=== PATIENT | female | born 1930 | race Caucasian/White ===

== ENCOUNTER 2017-01-23 22:32 | Inpatient (IN) | payer MEDICARE, BC ==
[2017-01-23] MEDS ORDERED: FLUT1LOT EX (22:50)
[2017-01-23] MEDS ORDERED: TRAZ50TA4 PO (22:50)
[2017-01-23] MEDS ORDERED: BENZ200C44 PO (22:50)
[2017-01-23] MEDS ORDERED: ARMO1TAB PO (22:50)
[2017-01-23] MEDS ORDERED: LEVO750T33 PO (22:50)
[2017-01-24] MEDS ORDERED: ONDANSETRON 4MG/2ML VIAL (J2405) IV ONE
[2017-01-24] MEDS ORDERED: FLUT1SPR2 (00:36)
[2017-01-24] MEDS ORDERED: GUAI5ELAC PO (00:36)
[2017-01-24 01:53] LABS: INR 1.08
[2017-01-24 02:04] LABS: ANION GAP 7 MEQ/L (8-16); BLOOD UREA NITROGEN 15 MG/DL (7-18); CALCIUM LEVEL 8.9 MG/DL (8.8-10.2); CARBON DIOXIDE LEVEL 26 MEQ/L (21-32); CHLORIDE LEVEL 100 MEQ/L (98-107); CREATININE FOR GFR 0.86 MG/DL (0.55-1.02); GLOMERULAR FILTRATION RATE > 60.0 (>32); GLUCOSE, FASTING 117 MG/DL (83-110); POTASSIUM SERUM 3.9 MEQ/L (3.5-5.1); SODIUM LEVEL 133 MEQ/L (136-145)
[2017-01-24 02:15] LABS: BASO % 0.2 % (0.0-1.0); EOS % 0.4 % (0.0-3.0); LARGE UNSTAINED CELL # 0.1 K/mm3 (0.0-0.4); LARGE UNSTAINED CELL % 1.2 % (0.0-4.0); LYMPH # 1.1 K/mm3 (1.5-4.5); LYMPH % 11.4 % (24.0-44.0); MEAN CORPUSCULAR HEMOGLOBIN 30.5 pg (27.0-33.0); MEAN CORPUSCULAR HGB CONC 33.4 g/dl (32.0-36.5); MEAN CORPUSCULAR VOLUME 91.4 fl (80.0-96.0); MONO # 0.4 K/mm3 (0.0-0.8); MONO % 4.5 % (0.0-5.0); NEUTROPHILS # 7.4 K/mm3 (1.8-7.7); NEUTROPHILS % 82.3 % (36.0-66.0); PLATELET COUNT, AUTOMATED 272 k/mm3 (150-450); RED CELL DISTRIBUTION WIDTH 12.7 % (11.5-14.5); WHITE BLOOD COUNT 8.9 K/mm3 (4.0-10.0)
[2017-01-24] MEDS: NS 1,000 ML IV SCH ×2 (05:00→17:20)
[2017-01-24] MEDS ORDERED: HEPARIN SOD (PORCINE) 5000 UNITS/ML VIAL SC SCH (06:00)
[2017-01-24 06:09] LABS: INR 1.11
[2017-01-24] MEDS: MORPHINE 2 MG/ML 1ML SYRINGE IV PRN ×5 (06:13→23:13)
--- NOTE | 2017-01-24 07:06 | HPEPDOC ---
General Date of Admission Jan 24, 2017 at 04:41 Other Providers PCP in [place] Attending Physician: ARLEN URENA DO Chief Complaint The patient is a 86-year-old female admitted with a reason for visit of Fx Of Femoral Neck, Right, Closed. Source: Patient Exam Limitations: No limitations Timing/Duration: 4-6 hours Severity: Severe Associated Symptoms: Mechanical fall History of Present Illness It is 6-year-old female with no past medical surgical history presented to the emergency room after having a mechanical fall at cousin's place. She lives in [place] and was visiting her cousin today and her foot and it is stuck in the rug and lost her balance and fell down On her right side, unable to get up. She'll go to the emergency room where she was found to have right. femoral Neck fracture Home Medications Scheduled Fluticasone Propionate (Fluticasone Propionate 0.05%) 120 [place]/16 Gm Naspr, 2 SPRAY NA DAILY, (Reported) PER NOSTRIL Levofloxacin Hemihydrate (Levofloxacin) 750 Mg Tab, 750 MG PO DAILY, (Reported) Thyroid ([place] Thyroid) 30 Mg Tab, 30 MG PO DAILY, (Reported) Trazodone HCl (Trazodone HCl) 50 Mg Tab, 50 MG PO QHS, (Reported) Scheduled PRN Benzonatate (Benzonatate) 200 Mg Cap, 200 MG PO Q8H PRN for COUGH, (Reported) Guaifenesin/Codeine (Guaifenesin/Codeine 100-10 mg/5Ml) 5 Ml Syrp, 5 ML PO BID PRN for COUGH, (Reported) COULD TAKE UP TO 10 ML BID Allergies Coded Allergies: No Known Allergies (Unverified , 01/23/17) Past Medical History Medical History None Surgical History None Social History * Smoker: Denies Alcohol: Denies Drugs: denies Recent Travel/Sick Contacts: Reports: Recent travel Psychosocial History: No pertinent psych hx Review of Symptoms Constitutional: Denies: Chills, Fever, Night Sweats Eyes: Denies: Pain, Vision change ENT: Denies: Head Aches, Ear Pain, Dysphagia Skin: Denies: Rash, Lesions, Breakdown Pulmonary: Denies: Dyspnea, Cough Cardiovascular: Denies: Chest Pain, Palpitations, Orthopnea, Paroxysmal Noc. Dyspnea, Lt Headedness Gastrointestinal: Denies: Nausea, Vomiting, Abdominal Pain, Diarrhea Genitourinary: Denies: Dysuria, Frequency, Incontinence, Retention Hematologic: Denies: Bruising, Bleeding Excessively Musculoskeletal: Reports: Joint Pain, Muscle Pain, Denies: Neck Pain, Back Pain, Spasms Neurological: Denies: Weakness, Numbness, Change in speech, Confusion Psych: Reports: Mood Normal, Denies: Depression, Memory Issues Physical Examination General Exam: Positive: Alert, No Acute Distress Eye Exam: Positive: PERRLA, Conjunctiva & lids normal, EOMI, Negative: Sclera icteric ENT Exam: Positive: Atraumatic, Mucous membr. moist/pink, Pharynx Normal Neck Exam: Positive: Supple, Negative: JVD, thyromegaly Chest Exam: Positive: Clear to auscultation, Normal air movement Heart Exam: Positive: Rate Normal, Regular Rhythm, Normal S1, Normal S2, Negative: Murmurs, Rubs Telemetry: Positive: No significant arrhythmia Abdomen Exam: Positive: Normal bowel sounds, Soft, Negative: Tenderness, Hepatospenomegaly Extremity Exam: Positive: Normal pulses, Other (tenderness in the right hip . No skin color change, no contusion or laceration), Negative: Clubbing, Cyanosis, Edema Skin Exam: Positive: Nl turgor and temperature, Negative: Breakdown, Lesion Neuro Exam: Positive: Normal Gait, Normal Speech, Cranial Nerves 3-12 NL, Reflexes 2+ Psych Exam: Positive: Mental status NL, Mood NL, Oriented x 3 Vital Signs Vital Signs Date Time Temp Pulse Resp B/P (MAP) Pulse Ox O2 Delivery O2 Flow Rate FiO2 01/24/17 06:50 16 96 Room Air 01/24/17 05:05 99.3 83 151/65 Laboratory Data Labs 24H Laboratory Tests 2 01/24/17 01:18: White Blood Count 8.9, Red Blood Count 3.53L, Hemoglobin 10.8L, Hematocrit 32.3L , Mean Corpuscular Volume 91.4, Mean Corpuscular Hemoglobin 30.5, Mean Corpuscular Hemoglobin Concent 33.4, Red Cell Distribution Width 12.7, Platelet Count 272, Neutrophils (%) (Auto) 82.3H, Lymphocytes (%) (Auto) 11.4L, Monocytes (%) (Auto) 4.5, Eosinophils (%) (Auto) 0.4, Basophils (%) (Auto) 0.2, Neutrophils # (Auto) 7.4, Lymphocytes # (Auto) 1.1L, Monocytes # (Auto) 0.4, Eosinophils # (Auto) 0.0, Basophils # (Auto) 0.0, Large Unclassified Cells % 1.2 , Large Unclassified Cells # 0.1, Prothrombin Time 14.1, Prothromb Time International Ratio 1.08, Activated Partial Thromboplast Time 33.7, Anion Gap 7L , Glomerular Filtration Rate > 60.0, Blood Urea Nitrogen 15, Creatinine 0.86, Sodium Level 133L, Potassium Level 3.9, Chloride Level 100, Carbon Dioxide Level 26, Calcium Level 8.9 01/24/17 05:47: Prothrombin Time 14.4, Prothromb Time International Ratio 1.11 CBC/BMP Laboratory Tests 01/24/17 01:18 Red Blood Count 3.53 L, Mean Corpuscular Volume 91.4, Mean Corpuscular Hemoglobin 30.5, Mean Corpuscular Hemoglobin Concent 33.4, Red Cell Distribution Width 12.7, Neutrophils (%) (Auto) 82.3 H, Lymphocytes (%) (Auto) 11.4 L, Monocytes (%) (Auto) 4.5, Eosinophils (%) (Auto) 0.4, Basophils (%) ( Auto) 0.2, Neutrophils # (Auto) 7.4, Lymphocytes # (Auto) 1.1 L, Monocytes # ( Auto) 0.4, Eosinophils # (Auto) 0.0, Basophils # (Auto) 0.0, Calcium Level 8.9 Assessment/Plan 86-year-old female with no past medical, surgical history, presented to the emergency room with a right hip pain, which was due to right femoral neck fracture Problems (1) Fracture of femoral neck, right, closed Status: Acute Problem Text: Orthopedic Dr. Savage was consulted. Patient was made nothing by mouth patient had no past medical or surgical history. No clonus and disorder, no COPD, no CHF, no CAD percent. Very low risk for this moderate to risk surgical procedure. Patient will be scheduled for ORIF today Plan / VTE VTE Prophylaxis Ordered?: Yes Plan / Urinary Catheter Urinary Catheter: Place Stewart Plan IVF: Initiate Diet: Make NPO Anticipated Discharge: Home RYAN CARDOZO MD Jan 24, 2017 07:06
[2017-01-24] MEDS ORDERED: MORPHINE 2 MG/ML 1ML SYRINGE IV ONE ×2 (08:15)
[2017-01-24] MEDS ORDERED: PERCOCET 5MG/325MG TAB As Ordered ONE (08:20)
[2017-01-24] MEDS: PERCOCET 5MG/325MG TAB PO PRN ×3 (08:23→21:26)
--- NOTE | 2017-01-24 08:25 | ECGEPIP ---
Stationary ECG Study [facility] - ED Test Date: 2017-01-23 Pat Name: IVANIA MCDUFFIE Department: Room: [place] [address] Gender: F Cycle Repairer: mariela : 1930 Requested By: MAMADOU Law Order Number: [id number] Reading MD: Lakeisha Scherer Measurements Intervals [place] Rate: 80 P: 48 GA: 153 QRS: 59 QRSD: 78 T: 61 QT: 360 QTc: 416 Interpretive Statements SINUS RHYTHM NSTTW ABNORMALITY NO PRIOR FOR COMPARISON Electronically Signed On 01-24-2017 8:25:23 EDT by Lakeisha Scherer
--- NOTE | 2017-01-24 08:39 | REP ---
Chest x-ray: Single PA view. History: Preop. Hip fracture. Findings: The lungs are somewhat hyperinflated but free of infiltrate. There is mild fibrotic change in the left base. The heart is not enlarged. Pulmonary vasculature is not increased. There are mild degenerative changes in the thoracic spine. No other bony abnormality. Impression: Mild linear fibrosis left base. Otherwise no acute disease. Signed by Giovanni Dailey MD 01/24/2017 10:17 A
--- NOTE | 2017-01-24 08:40 | REP ---
Pelvis right hip: Three views. History: Trauma. Findings: AP view of the pelvis and AP and frog-leg views of the right hip demonstrate a femoral neck fracture on the right with some impaction. There is diffuse osteoporosis. No pelvic or left hip fracture is seen. Impression: Right femoral neck fracture. Signed by Giovanni Dailey MD 01/24/2017 10:17 A
[2017-01-24] MEDS: THYROID 30 MG TAB PO SCH (09:00)
[2017-01-24] MEDS: FLUTICASONE PROP 0.05% NASAL SPRAY 16 GM (FLONASE) SCH (09:29)
[2017-01-24] MEDS ORDERED: ceFAZolin 1GM INJ (J0690) As Ordered ONE ×2 (13:09→18:32)
[2017-01-24] MEDS ORDERED: BUPIVACAINE/EPIN 0.25% 30 ML VIAL As Ordered ONE (13:09)
[2017-01-24] MEDS ORDERED: WARFARIN SOD 2.5 MG TAB PO SCH (17:00)
--- NOTE | 2017-01-24 17:11 | CR ---
DATE OF CONSULTATION: 01/24/2017 Saw the patient this morning in the ER on 01/24/2017. CHIEF COMPLAINT: Right hip pain. HISTORY OF PRESENT ILLNESS: She stumbled on a rug. She is here from [place] visiting relatives. She had pain in the hip on the right side, trouble weightbearing. 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 ALLERGIES: No known drug allergies. MEDICAL HISTORY: Include no significant medical issues. She has hypothyroidism. MEDICATIONS AT HOME: Include fluconazole, levofloxacin, thyroid and trazodone. SOCIAL HISTORY: Does not smoke or drink or use illicit drugs. Primary language is Kenyan. REVIEW OF SYSTEMS: She is only complaining bitterly of right hip pain. She is not complaining of fever or chills, visual disturbances, headache, skin problems, lung problems, chest pain, GI problems, skin or urinary problems other than usual. Musculoskeletal issues other than the right hip pain, numbness or tingling or psychiatric disturbances. CLINICAL EXAM: Alert and cooperative. Mood and affect appropriate. She is articulate and charming. She has healthy skin in the face, upper and lower extremity. She is quite thin, but not quite cachectic. Normocephalic, atraumatic. No shortness of breath. Cardiac: Regular about 90 beats per minute. Lower extremity is not edematous. She has pain around the right hip with any movement. No edema about the knee. Soft, nontender calves. Oxygen on room air was 96%, blood pressure in the ED 151/65, afebrile. LABORATORY DATA: Hematocrit 32. Creatinine 0.86, potassium 3.9. IMAGING: She has a valgus impacted femoral neck fracture of the right hip. RECOMMENDATIONS: Consulted the patient about different treatment options. My recommendation at this stage would be 7-3 cannulated screws for fixation of the fracture. We talked about the surgery proposed, alternatives including hemiarthroplasty and risks including but not limited to failure, need for more surgery, infection, bleeding, blood loss, limp and other issues. The patient understands and agrees to proceed with surgery. Medical optimization via the hospitalist service. Coordinated care with the ER and coordinated surgical scheduling with the OR. For further details please refer to the medical record.
[2017-01-24] MEDS ORDERED: ceFAZolin 2 GM/D5W 50 ML IV BAG (J0690) As Ordered ONE (18:06)
[2017-01-24] MEDS ORDERED: KETAMINE HCL 200 MG/20 ML VIAL As Ordered ONE (19:08)
[2017-01-24] MEDS ORDERED: fentaNYL 100 MCG/2 ML INJECTION (J3010) As Ordered ONE (19:08)
[2017-01-24] MEDS ORDERED: PROPOFOL 500 MG/50 ML VIAL As Ordered ONE (19:08)
[2017-01-24] MEDS ORDERED: PHENYLephrine HCL 500 MCG/5 ML (100MCG/ML) SYRINGE (J2370) As Ordered ONE (19:08)
[2017-01-24] MEDS ORDERED: MIDAZOLAM INJ 2 MG/2 ML VIAL (J2250) As Ordered ONE (19:08)
[2017-01-24] MEDS ORDERED: PERCOCET 5MG/325MG TAB PO PRN ×2 (19:45→20:00)
[2017-01-24] MEDS ORDERED: D5W/LR 1,000 ML IV SCH (19:45)
[2017-01-24] MEDS ORDERED: ONDANSETRON 4MG/2ML VIAL (J2405) IV PRN ×2 (19:45→20:00)
[2017-01-24] MEDS ORDERED: MEPERIDINE INJ 25 MG/ML VIAL (J2175) As Ordered ONE (19:49)
[2017-01-24] MEDS ORDERED: MEPERIDINE INJ 25 MG/ML VIAL (J2175) IV PRN (20:00)
[2017-01-24] MEDS ORDERED: LR 1,000 ML IV SCH (20:00)
[2017-01-24] MEDS ORDERED: METOCLOPRAMIDE INJ 10MG/2ML VIAL (J2765) IV PRN (20:00)
[2017-01-24] MEDS ORDERED: fentaNYL 100 MCG/2 ML INJECTION (J3010) IV PRN (20:00)
--- NOTE | 2017-01-24 20:01 | REP ---
C-ARM VIEWS RIGHT HIP: Two C-Arm views of the right hip are performed. There is placement of three metallic screws in the proximal right femur. The structures are relatively well aligned. 40 seconds fluoroscopy time utilized. Signed by Rip Aragon MD 01/24/2017 08:07 P
[2017-01-24 20:30] VITALS: BP 145/70
[2017-01-24 21:00] VITALS: BP 143/64
[2017-01-24 22:00] VITALS: BP 142/64
[2017-01-24 23:00] VITALS: BP 135/60
[2017-01-24] MEDS: ceFAZolin SOD 1 GM in D5W MINI-BAG PLUS 50 ML IV SCH (23:13)
[2017-01-25] VITALS: BP 133/78
[2017-01-25] MEDS: MORPHINE 2 MG/ML 1ML SYRINGE IV PRN ×2 (00:53→11:18)
[2017-01-25 01:00] VITALS: BP 138/60
[2017-01-25] MEDS: PERCOCET 5MG/325MG TAB PO PRN ×3 (01:23→15:18)
[2017-01-25 05:00] VITALS: BP 124/59
[2017-01-25] MEDS: ceFAZolin SOD 1 GM in D5W MINI-BAG PLUS 50 ML IV SCH (05:45)
[2017-01-25 07:05] LABS: MEAN CORPUSCULAR HEMOGLOBIN 31.4 pg (27.0-33.0); MEAN CORPUSCULAR HGB CONC 33.6 g/dl (32.0-36.5); MEAN CORPUSCULAR VOLUME 93.3 fl (80.0-96.0); RED CELL DISTRIBUTION WIDTH 12.8 % (11.5-14.5); WHITE BLOOD COUNT 7.7 K/mm3 (4.0-10.0)
[2017-01-25 07:13] LABS: INR 1.2
[2017-01-25 07:20] LABS: ALBUMIN 2.6 GM/DL (3.2-5.2); ALBUMIN/GLOBULIN RATIO 0.76 (1.00-1.93); ALKALINE PHOSPHATASE 59 U/L (45-117); ALT/SGPT 17 U/L (12-78); ANION GAP 7 MEQ/L (8-16); AST/SGOT 15 U/L (15-37); BILIRUBIN,TOTAL 0.4 MG/DL (0.2-1.0); BLOOD UREA NITROGEN 9 MG/DL (7-18); CARBON DIOXIDE LEVEL 26 MEQ/L (21-32); CHLORIDE LEVEL 99 MEQ/L (98-107); CREATININE FOR GFR 0.67 MG/DL (0.55-1.02); GLOMERULAR FILTRATION RATE > 60.0 (>32); GLUCOSE, FASTING 127 MG/DL (83-110); POTASSIUM SERUM 3.8 MEQ/L (3.5-5.1); SODIUM LEVEL 132 MEQ/L (136-145)
[2017-01-25] MEDS ORDERED: MIRALAX *UNIT DOSE* 17GM PACKET PO SCH (09:00)
[2017-01-25] MEDS ORDERED: MOM 30ML SUSPENSION UDC PO SCH (09:00)
[2017-01-25] MEDS ORDERED: SENOKOT S TAB PO SCH (09:00)
--- NOTE | 2017-01-25 09:25 | REP ---
RIGHT HIP: Two views. HISTORY: Evaluate hardware placement. Comparison hip radiographs from January 23, 2017. FINDINGS: There are three metallic pins in good position across a femoral neck fracture which is held in alignment unchanged. There is slight impaction. Lateral skin raymond are noted. There is some diffuse osteopenia. Signed by Giovanni Dailey MD 01/25/2017 09:37 A
[2017-01-25] MEDS: THYROID 30 MG TAB PO SCH (10:00)
[2017-01-25] MEDS: FLUTICASONE PROP 0.05% NASAL SPRAY 16 GM (FLONASE) SCH (10:00)
[2017-01-25 14:00] VITALS: BP 132/98
[2017-01-25] MEDS ORDERED: WARFARIN SOD 5 MG TAB PO ONE (17:00)
--- NOTE | 2017-01-25 23:07 | DSES ---
DATE OF ADMISSION: 01/24/2017 DATE OF DISCHARGE: REASON FOR ADMISSION: Fracture of the right femoral neck. PRIMARY CARE PROVIDER: Sukumar Kumar. FINAL DIAGNOSIS: Impacted, femoral neck fracture of the right hip status post fixation of the fracture. HISTORY OF PRESENT ILLNESS: The patient an 86-year-old from on out of town. Is here visiting her cousin. Had a mechanical fall, resulting in the right femoral neck fracture. In the emergency room she was evaluated by Dr. Savage, and she was cleared for surgery. HOSPITAL COURSE: The patient tolerated the procedure well. Preoperatively she had that mild anemia, hemoglobin 10.8, postoperative is 9.3. The patient was also hyponatremic upon arrival at 133. Postoperatively was 132. Otherwise patient tolerated procedure well. Was working with physical therapy, ambulating, and she was accepted at physical medicine and rehabilitation ([facility]) and was discharged. DISCHARGE INSTRUCTIONS: The patient is to followup with orthopedics in 1-2 weeks upon discharge, to followup with primary care provider in 1 week. Diet regular. Activities as tolerated. DISCHARGE MEDICATIONS: Include: - benzonatate 200 mg every 8 hours as needed for cough - Fluticasone 120 spray, two sprays per nostril daily - thyroid 30 mg by mouth daily Patient was on levofloxacin when she came in with a recent diagnosis of sinusitis. That was discontinued. Trazodone was also discontinued. The patient is to continue Coumadin. She was ordered one dose of Coumadin 5 mg today. Recommend repeat complete blood count (CBC) and INR in the morning, to continue to monitor the patient's hemoglobin and INR. Also recommend ordering basic metabolic panel (BMP) to monitor patient's hyponatremia. The patient condition is stable.
--- NOTE | 2017-01-26 08:53 | RO ---
DATE OF PROCEDURE: 01/25/2017 PREOPERATIVE DIAGNOSIS: Right hip valgus impacted femoral neck fracture. POSTOPERATIVE DIAGNOSIS: Right hip valgus impacted femoral neck fracture. OPERATIVE PROCEDURE: Percutaneous fixation of right hip impacted femoral neck fracture using 7.3 cannulated screws. SURGEON: Nadir Savage MD [employer] OFFICER: ANESTHESIA: rosa Johnson. ESTIMATED BLOOD LOSS: Less than 30 mL. REPLACED: Crystalloid. COMPLICATIONS: None. COMPONENTS USED: Include 7.3 cannulated screws, 85 mm length x 2, 90 mm length x 1 short threads. INDICATIONS: Impacted femoral neck fracture as above. Consent reviewed in detail with the patient who agrees to proceed with the surgery. We also talked about alternatives such as hemiarthroplasty. DESCRIPTION OF PROCEDURE: Identified in the holding area, site, side verified, brought to the operating room. Once spinal anesthesia was administered, I positioned the patient on the fracture table for exposure of the right hip. Once she was sterilely prepped and draped, a time-out was accomplished. We proceeded with the operation. I palpated the lateral aspect of femur. We made a 1.5 cm incision based on fluoroscopic visualization, developed down through subcuticular tissues. I made a rent in the lateral hip fascia to allow the guide to be applied to the lateral aspect of the femur. I applied a guidewire, which was drilled in the femoral head. I placed the guidewire and verified and adjusted it fluoroscopically in the AP and lateral planes. Remaining two guidewires were then placed into the femoral head, into the subchondral bone. Next, we measured off the wires. I overdrilled the wires at the lateral cortex and then we placed the appropriate 7.3 cannulated screws over the wires. Final fluoroscopic images taken in the AP and lateral planes reflect good screw placement and a well aligned injury. Next wires removed. Irrigation was accomplished. Lateral fascia reapproximated with interrupted stitch. Dermis approximated with an interrupted stitch. Linda used on skin dressing applied. I helped reassemble the fracture bed and moved the patient to the hospital bed where she was moved to the recovery room in good condition. She tolerated the procedure well. For further details please refer to medical record.
== END 2017-01-25 16:24 | DRG 481 ==
LOC: EDBD 22:32 → M ED 23:51 → M ED INP 01-24 04:41 → M MS5PR 01-24 08:30
PROVIDERS: ADMIT Internal Medicine; ATTEND Internal Medicine
PROC: 0QS604Z Reposition Right Upper Femur with Internal Fixation Device, Open Approach (ICD-10-PCS; principal; 2017-01-25)
DX: S72.001A Fracture of unspecified part of neck of right femur, initial encounter for closed fracture (principal); E87.1 Hypo-osmolality and hyponatremia; D62 Acute posthemorrhagic anemia; Z79.899 Other long term (current) drug therapy; W18.30XA Fall on same level, unspecified, initial encounter; Y92.009 Unspecified place in unspecified non-institutional (private) residence as the place of occurrence of the external cause

== ENCOUNTER 2017-01-25 15:08 | Inpatient (IN) | payer MEDICARE, BC ==
[~2017-01-25] VITALS: Ht 156.2 cm; Wt 48.4 kg
[~2017-01-25 15:08] MED LIST: ARMO1TAB PO; BENZ200C44 PO; FLUT1LOT EX; FLUT1SPR2; GUAI5ELAC PO; LEVO750T33 PO; TRAZ50TA4 PO
[2017-01-25] MEDS ORDERED: MOM 30ML SUSPENSION UDC PO PRN (15:45)
[2017-01-25] MEDS ORDERED: FLEET ENEMA PR PRN (15:45)
[2017-01-25] MEDS ORDERED: MIRALAX *UNIT DOSE* 17GM PACKET PO PRN (15:45)
[2017-01-25] MEDS ORDERED: ONDANSETRON 4 MG TAB (S0181) PO PRN (15:45)
[2017-01-25] MEDS ORDERED: oxyCODONE 5MG TAB PO PRN (16:30)
[2017-01-25 17:00] VITALS: BP 112/53
[2017-01-25] MEDS ORDERED: WARFARIN SOD 5 MG TAB PO SCH (17:00)
--- NOTE | 2017-01-25 17:45 | CR.PDOC ---
[facility] Consultation Consultation DATE OF CONSULTATION: REFERRING PROVIDER: Michael Tang M.D. ATTENDING PHYSICIAN: Dr. Macias REASON FOR CONSULTATION/CHIEF COMPLAINT: . Medical Management HISTORY OF PRESENT ILLNESS: . 86-year-old female with past medical history significant only for hypothyroidism and a recent fracture of the right femoral neck status post open reduction internal fixation by orthopedic surgery. The patient has been transferred to acute rehabilitation for further strengthening and conditioning. At this time, the patient denies any acute complaints of fevers, chills, shortness of breath, chest pain, palpitation, abdominal pain or any nausea/ vomiting/diarrhea. The hospitalist team has been consulted for assistance with management of the patient's underlying medical comorbidity. ALLERGIES: Please see below. HOME MEDICATIONS: Please see below. PAST MEDICAL HISTORY: As noted above PAST SURGICAL HISTORY: None FAMILY HISTORY: Not pertinent SOCIAL HISTORY: Denies any tobacco, alcohol or illicit drug use REVIEW OF SYSTEMS: 10 point review of systems negative unless otherwise specified in HPI. PHYSICAL EXAMINATION: VITAL SIGNS: Please see below. GENERAL APPEARANCE: . Awake, alert, in no acute distress HEENT: . No JVD RESPIRATORY: . Clear to auscultation bilaterally CARDIOVASCULAR: . Normal S1, normal S2 ABDOMEN: . Soft, nontender, nondistended EXTREMITIES: . Surgical dressing noted on right hip area, range of motion on flexion and extension of the hip limited secondary to recent surgery. LABORATORY DATA: Please see below. ASSESSMENT/PLAN: Right hip femoral neck status post ORIF Management of pain and DVT prophylaxis as per primary team Mild hyponatremia Serum sodium noted to be 132 We will continue to monitor at this time History of hypothyroidism Continue supplementation GERD Continue PPI The patient will be followed in consult by Dr. Naranjo of the hospitalist team over the weekend. Vital Signs/I&O Vital Signs Date Time Temp Pulse Resp B/P (MAP) Pulse Ox O2 Delivery O2 Flow Rate FiO2 01/25/17 17:00 99.2 82 18 112/53 (72) 95 Room Air Allergies Coded Allergies: No Known Allergies (Unverified , 01/23/17) Home Medications Scheduled Fluticasone Propionate (Fluticasone Propionate 0.05%) 120 [place]/16 Gm Naspr, 2 SPRAY NA DAILY, (Reported) PER NOSTRIL Thyroid ([place] Thyroid) 30 Mg Tab, 30 MG PO DAILY, (Reported) Scheduled PRN Benzonatate (Benzonatate) 200 Mg Cap, 200 MG PO Q8H PRN for COUGH, (Reported) Guaifenesin/Codeine (Guaifenesin/Codeine 100-10 mg/5Ml) 5 Ml Syrp, 5 ML PO BID PRN for COUGH, (Reported) COULD TAKE UP TO 10 ML BID MICHAEL TANG MD Jan 25, 2017 17:45
--- NOTE | 2017-01-25 19:46 | PMRHPE ---
DATE OF ADMISSION: 01/25/2017 REASON FOR ADMISSION: Rehabilitation of right hip fracture status-post open reduction internal fixation on 01/24/2017. HISTORY OF THE PRESENT ILLNESS: Patient is an 86-year-old white female who while visiting family caught her foot in a rug, lost her balance and fell down on her right side. She was unable to move her right hip. She was brought to the emergency room at [facility] and was discovered to have a right femoral neck fracture with some impaction on 01/24/2017. She went to the operating room and had an open reduction internal fixation of the right hip fracture and is touch down weightbearing, egg shell, level pressure on the right lower extremity. Her course her been complicated by pain as well as some postoperative anemia related to the bleed with the hip fracture and subsequent clean out and drainage during the reduction and internal fixation procedure. PAST MEDICAL HISTORY: Includes allergies, hypothyroidism, also some insomnia. HOME MEDICATIONS: Fluconazole propionate, armor thyroid, trazodone. ALLERGIES: NO KNOWN DRUG ALLERGIES. MEDICATIONS ON ADMISSION: - Protonix 40 mg daily for gastrointestinal (GI) protection - multivitamin daily to assist healing - Senokot for a bowel program - Coumadin for deep venous thrombosis (DVT) prophylaxis - MiraLAX for a bowel program - Fleets enema for constipation - Milk of magnesia for constipation - Zofran for nausea and vomiting - Tylenol for pain or fever - oxycodone 5 mg for moderate pain and 10 mg for severe pain every 6 hours SOCIAL HISTORY: Patient who is retired and a nonsmoker. Does not drink alcohol. Does not use illicit drugs. Was living independently with community skills and driving herself. She lives in [place] and was visiting family members in this region. FAMILY HISTORY: Noncontributory. REVIEW OF SYSTEMS: Negative on a 12 point history except for the joint pain and hip pain and spasms on the right. PHYSICAL EXAMINATION: GENERAL: Patient is a well nourished, well developed, elderly white female who looks slightly less than stated age of 86. VITAL SIGNS: Temperature 98.3, blood pressure 124/59, pulse 75, respirations 14, pulse oximetry 100% on 2 liters oxygen by nasal cannula. HEENT: Normocephalic/atraumatic with graying and slightly thinning hair. She uses glasses for visual correction. Extraocular motions are intact. Pupils are equal, round, reactive to light and accommodation. Pupils were 2-3 mm in diameter in a moderately dark room. Hearing is grossly intact. NECK: Supple. Carotid parathyroid is normal in size and no goiter or nodules were palpable. LUNGS: Clear in all sesay to auscultation. CORONARY: Shows a regular rate and rhythm with normal S1, S2 and 2/4 radial pulses. ABDOMEN: Showed mild distention with a bit of increased tympany on percussion and just very mild to no diffuse tenderness with normal bowel sounds in all quadrants. EXTREMITIES: Right hip is tender with some guarding and has the surgical incision under dressing. Bilateral upper extremities and left lower extremity with functional range of motion and strength. Right lower extremity has guarding, otherwise hip with some tenderness with other movements of the right lower extremity with any movement of ankle movement. NEUROLOGICALLY: The patient is alert and oriented times 4. Speech is clear, coherent and appropriate. Affect is pleasant and cooperative. She is a bit anxious and in moderate musculoskeletal distress. Light touch is intact in bilateral upper and lower extremity as is vibration. Deep tendon reflexes show 2/4 biceps, triceps, 2/4 brachial radialis and 1/4 knee jerks and trace ankle jerks. LABORATORY DATA: CBC shows normal white count of 7.7 but hemoglobin and hematocrit preoperatively at 10.8 and 32.3% have declined to 9.3 and 27.7% for a moderate anemia with sodium reduced from 133 to 132 in the preoperative and postoperative time frame with the other electrolytes normal and renal function normal but fasting glucose is elevated at 127 this morning and albumin has declined to 2.6 for hypoalbuminemia. Coagulation is still under work this morning. INR is 1.20 and patient is to receive 5 units of Coumadin tonight. IMAGING: On postoperative hip x-ray, there are 3 metallic pins in good position across the femoral neck fracture and alignment is unchanged from preoperative pictures. Lateral skin raymond are noted. There is some diffuse osteopenia. ASSESSMENT/PLAN: 1. Rehabilitation of right hip fracture. Patient restricted during the next 6 weeks to just toe touch or less than 15 pounds of weightbearing through the right lower extremity. She needs to learn how to compensate to using a walker or crutches to get around without bearing weight in on the right lower extremity and learn her activities of daily living (ADL's) using these techniques. Therefore, we will proceed with a program of physical and occupational therapy to learn adapative mobility and ADL's, initially with walker and if patient is able to advance to crutches will do so. I anticipate through cognition and prior high level of function she should do well but right now she is having lots of problems with pain management and the bowels have slowed down somewhat and she has not had a bowel movement in over 2 days and this will need to be watched. She needs DVT prophylaxis and we will continue with sequential compression hose and ANTHONY hose as well as the Coumadin for that. 2. Hypothyroidism. Will continue using her medication armor thyroid 30 mg daily. 3. Fever. We will continue to watch for this and adjust accordingly. 4 History of some insomnia. We will consider starting trazodone if needed to reinforce sleep. Patient previously using 50 mg at night. 5. Postoperative anemia. Patient with moderate anemia. We will continue to watch this. Medicine has been consulted to see patient and participate in care. POST ADMISSION PHYSICIAN EVALUATION: Patient is consistent with the preadmission screening and is likely to be able to participate and benefit in therapy. She is early on the process and someone more inhibited by initial postoperative pain but we will work to adjust her medication, possibly using some tramadol as well to facilitate less opioids and get more consistent algesia. I do think that she will benefit from this therapy. I anticipate her being discharged to return to stay with her family locally to complete the approximate 6 weeks that it will take for her to regain a solid fusion of the hip fracture such that the consideration for a return to driving and flying home will be practical. Overall I do feel her prognosis is good and I estimate her length of stay in the rehabilitation unit to be approximately 7-10 days though she may do better than that. Time spent on chart review, history and physical and documentation is greater than 70 minutes.
[2017-01-25 20:00] VITALS: BP 117/56
[2017-01-25] MEDS: SENNA 8.6 MG TAB (SENOKOT) PO SCH (20:46)
[2017-01-25] MEDS: ACETAMINOPHEN TAB 650MG DOSE (2X325MG) PO PRN (20:48)
[2017-01-26 06:00] VITALS: BP 140/63
[2017-01-26] MEDS: ACETAMINOPHEN TAB 650MG DOSE (2X325MG) PO PRN ×2 (06:20→12:43)
[2017-01-26] MEDS: THYROID 30 MG TAB PO SCH (06:20)
[2017-01-26 07:02] LABS: BASO % 0.1 % (0.0-1.0); EOS # 0.1 K/mm3 (0.0-0.50); EOS % 1.3 % (0.0-3.0); LARGE UNSTAINED CELL # 0.1 K/mm3 (0.0-0.4); LARGE UNSTAINED CELL % 1.1 % (0.0-4.0); LYMPH # 1.2 K/mm3 (1.5-4.5); LYMPH % 14.1 % (24.0-44.0); MEAN CORPUSCULAR HEMOGLOBIN 30.8 pg (27.0-33.0); MEAN CORPUSCULAR HGB CONC 33.3 g/dl (32.0-36.5); MEAN CORPUSCULAR VOLUME 92.7 fl (80.0-96.0); MONO # 0.5 K/mm3 (0.0-0.8); MONO % 5.4 % (0.0-5.0); NEUTROPHILS # 6.5 K/mm3 (1.8-7.7); PLATELET COUNT, AUTOMATED 263 k/mm3 (150-450); RED CELL DISTRIBUTION WIDTH 12.4 % (11.5-14.5); WHITE BLOOD COUNT 8.3 K/mm3 (4.0-10.0)
[2017-01-26 07:18] LABS: INR 1.26
[2017-01-26 07:21] LABS: ALBUMIN 2.6 GM/DL (3.2-5.2); ALBUMIN/GLOBULIN RATIO 0.72 (1.00-1.93); ALKALINE PHOSPHATASE 65 U/L (45-117); ALT/SGPT 20 U/L (12-78); ANION GAP 11 MEQ/L (8-16); AST/SGOT 15 U/L (15-37); BILIRUBIN,TOTAL 0.5 MG/DL (0.2-1.0); BLOOD UREA NITROGEN 11 MG/DL (7-18); CALCIUM LEVEL 7.8 MG/DL (8.8-10.2); CARBON DIOXIDE LEVEL 23 MEQ/L (21-32); CHLORIDE LEVEL 92 MEQ/L (98-107); CREATININE FOR GFR 0.61 MG/DL (0.55-1.02); GLOMERULAR FILTRATION RATE > 60.0 (>32); GLUCOSE, FASTING 99 MG/DL (83-110); POTASSIUM SERUM 3.8 MEQ/L (3.5-5.1); SODIUM LEVEL 126 MEQ/L (136-145); TOTAL PROTEIN 6.2 GM/DL (6.4-8.2)
[2017-01-26] MEDS: MULTIVITAMINS/MINERALS THERAP 1 TAB PO SCH (08:25)
[2017-01-26] MEDS: PANTOPRAZOLE 40MG TAB (PROTONIX) PO SCH (08:25)
[2017-01-26] MEDS: FLUTICASONE PROP 0.05% NASAL SPRAY 16 GM (FLONASE) SCH (08:26)
[2017-01-26 14:45] VITALS: BP 167/78
[2017-01-26] MEDS: oxyCODONE 5MG TAB PO PRN ×2 (15:46→21:46)
[2017-01-26] MEDS ORDERED: WARFARIN SOD 5 MG TAB PO ONE (17:00)
[2017-01-26 20:00] VITALS: BP 135/62
[2017-01-26] MEDS: SENNA 8.6 MG TAB (SENOKOT) PO SCH (21:46)
[2017-01-27] MEDS: ACETAMINOPHEN TAB 650MG DOSE (2X325MG) PO PRN ×2 (00:40→22:21)
[2017-01-27 06:00] VITALS: BP 129/56
[2017-01-27] MEDS: THYROID 30 MG TAB PO SCH (06:10)
[2017-01-27] MEDS: oxyCODONE 5MG TAB PO PRN ×2 (06:11→17:40)
[2017-01-27 07:22] LABS: INR 1.86
[2017-01-27 08:02] LABS: ANION GAP 9 MEQ/L (8-16); BLOOD UREA NITROGEN 8 MG/DL (7-18); CALCIUM LEVEL 8.3 MG/DL (8.8-10.2); CARBON DIOXIDE LEVEL 28 MEQ/L (21-32); CHLORIDE LEVEL 99 MEQ/L (98-107); CREATININE FOR GFR 0.78 MG/DL (0.55-1.02); GLOMERULAR FILTRATION RATE > 60.0 (>32); GLUCOSE, FASTING 123 MG/DL (83-110); POTASSIUM SERUM 4.5 MEQ/L (3.5-5.1); SODIUM LEVEL 136 MEQ/L (136-145)
[2017-01-27] MEDS: PANTOPRAZOLE 40MG TAB (PROTONIX) PO SCH (08:31)
[2017-01-27] MEDS: MULTIVITAMINS/MINERALS THERAP 1 TAB PO SCH (08:31)
[2017-01-27] MEDS: FLUTICASONE PROP 0.05% NASAL SPRAY 16 GM (FLONASE) SCH (08:31)
[2017-01-27 14:00] VITALS: BP 125/58
[2017-01-27] MEDS ORDERED: WARFARIN SOD 5 MG TAB PO ONE (17:00)
[2017-01-27 20:00] VITALS: BP 130/61
[2017-01-27] MEDS: SENNA 8.6 MG TAB (SENOKOT) PO SCH (20:43)
[2017-01-28] MEDS: oxyCODONE 5MG TAB PO PRN (01:34)
[2017-01-28 06:00] VITALS: BP 127/60
[2017-01-28] MEDS: THYROID 30 MG TAB PO SCH (06:20)
[2017-01-28 08:27] LABS: INR 2.07
[2017-01-28 08:32] LABS: ANION GAP 8 MEQ/L (8-16); BLOOD UREA NITROGEN 11 MG/DL (7-18); CALCIUM LEVEL 8.4 MG/DL (8.8-10.2); CARBON DIOXIDE LEVEL 27 MEQ/L (21-32); CHLORIDE LEVEL 103 MEQ/L (98-107); GLOMERULAR FILTRATION RATE > 60.0 (>32); GLUCOSE, FASTING 93 MG/DL (83-110); POTASSIUM SERUM 4.6 MEQ/L (3.5-5.1); SODIUM LEVEL 138 MEQ/L (136-145)
[2017-01-28] MEDS: PANTOPRAZOLE 40MG TAB (PROTONIX) PO SCH (09:05)
[2017-01-28] MEDS: MULTIVITAMINS/MINERALS THERAP 1 TAB PO SCH (09:05)
[2017-01-28] MEDS: FLUTICASONE PROP 0.05% NASAL SPRAY 16 GM (FLONASE) SCH (09:05)
--- NOTE | 2017-01-28 11:22 | IPNPDOC ---
Subjective Date Seen The patient was seen on 01/28/17. Subjective Chief Complaint/HPI The patient is a 86-year-old female admitted with a reason for visit of Right Femoral Neck Fx With Some Impaction. Events since last encounter Pt is OOB to chair. No complaints. Pulmonary: Denies: Dyspnea, Cough Cardiovascular: Denies: Chest Pain, Palpitations, Orthopnea, Paroxysmal Noc. Dyspnea, Lt Headedness Gastrointestinal: Denies: Nausea, Vomiting, Abdominal Pain, Diarrhea, Constipation Genitourinary: Denies: Dysuria, Frequency, Incontinence, Retention Objective Physical Examination General Exam: Positive: Alert Eye Exam: Positive: PERRLA ENT Exam: Positive: Atraumatic Neck Exam: Positive: Supple Chest Exam: Positive: Clear to auscultation, Normal air movement Heart Exam: Positive: Rate Normal, Regular Rhythm, Normal S1, Normal S2, Negative: Murmurs, Rubs Extremity Exam: Positive: Normal pulses, Negative: Clubbing, Cyanosis, Edema Skin Exam: Positive: Nl turgor and temperature Assessment /Plan Problems (1) Fracture of femoral neck, right, closed Status: Acute Problem Text: * Mgmt as per ARU * PT/OT/Pain control/Bowel care as per Dr Macias. * Coumadin as per Orthopedics. (2) Postoperative anemia Status: Acute Problem Text: * Hgb 9.2. * Monitor. (3) Hyponatremia Status: Resolved Problem Text: * Na WNL. * Monitor. (4) Hypothyroid Status: Chronic Problem Text: * Cont supplement. (5) GERD (gastroesophageal reflux disease) Status: Chronic Problem Text: * PPI (6) Allergic rhinitis Status: Chronic Problem Text: * flonase Plan/VTE VTE Prophylaxis Ordered?: Yes (Coumadin as per Ortho) VS, I&O, 24H, Fishbone Vital Signs/I&O Vital Signs Date Time Temp Pulse Resp B/P (MAP) Pulse Ox O2 Delivery O2 Flow Rate FiO2 01/28/17 06:00 98.4 73 16 127/60 (82) 95 Room Air I&O- Last 24 Hours up to 6 AM 01/28/17 06:00 Intake Total 1920 ml Output Total 2900 ml Balance -980 ml Laboratory Data 24H LABS Laboratory Tests 2 01/28/17 06:54: Prothrombin Time 23.4H, Prothromb Time International Ratio 2.07, Anion Gap 8, Glomerular Filtration Rate > 60.0, Blood Urea Nitrogen 11, Creatinine 0.60, Sodium Level 138, Potassium Level 4.6, Chloride Level 103, Carbon Dioxide Level 27, Calcium Level 8.4L CBC/BMP Laboratory Tests 01/28/17 06:54 Calcium Level 8.4 L Yessenia Nair Jan 28, 2017 11:22
[2017-01-28] MEDS ORDERED: traZODone 50 MG TAB PO ONE (11:46)
--- NOTE | 2017-01-28 12:39 | IPNPDOC ---
[employer] Shift Lead Progress Note DATE OF SERVICE: 01/28/17 DATE OF ADMISSION: Jan 25, 2017 at 16:25 INPATIENT REHABILITATION ADMISSION DAY: #4 SUBJECTIVE: Patient is a 86-year-old white female with right hip fracture status post open reduction internal fixation on 01/24/17. Patient reports the pain is been improving but she is having some trouble with sleep and would like to have her trazodone. Otherwise no problems reported and patient has had bowel movements and is coming to the unit. ALLERGIES: See Below MEDICATIONS: Reviewed, see below. OBJECTIVE: VITAL SIGNS: Please see below. PHYSICAL EXAMINATION: GENERAL: Well-nourished well-developed elderly white female who is alert and well oriented and mild musculoskeletal distress around her right hip. HEENT: Normocephalic/atraumatic. CARDIOVASCULAR: Regular rate and rhythm with normal S1-S2 without S3-S4 murmurs or rubs. Patient with 2/4 bilateral radial pulses. LUNGS: All sesay clear to auscultation. ABDOMEN: Benign with normal bowel sounds heard in all quadrants. NEUROLOGICAL: Patient alert and oriented 4. Speech is clear coherent and appropriate. Affect is pleasant cooperative patient is a little anxious. Memory is intact. Bilateral upper extremity and left lower extremity sensory motor intact with some guarding on the right lower extremity. SKIN: Surgical site healing well. LABORATORY DATA: Reviewed. Please see below. MICROBIOLOGY: Please see below. IMAGING: No new imaging. DVT prophylaxis ordered?: Patient continues on Coumadin with INR of 2.07 now therapeutic with target range at 2.0-3.0. Coumadin orders per orthopedics. ASSESSMENT AND PLAN: 1. Rehabilitation of right hip fracture status post ORIF: Patient overall tears to be much more comfortable when seen initially on Saturday. She is start physical and occupational therapy and we will review her participation and progress and team rounds today. Patient progressing with PT/OT goals and anticipate reaching d/c goals by . 2. Postoperative anemia: Was H & H of 9.2 & 27.7 Saturday and will repeat CBC tomorrow. 3. Hypoalbuminemia: Albumin 2.6 will need to be monitored and patient encouraged to yet adequate protein and diet. 4. DVT prophylaxis: Patient now therapeutic on Coumadin and will continue with ANTHONY hose and discontinue sequential compression but focus on getting patient to ambulate more more and therapy. 5. Discharge planning: Patient is interested in when she can fly back home. I suspect orthopedics would like to keep her from risking the surgery until the bone is a little stickier and stronger. TIME SPENT: Chart Review, examination and documentation required greater than 35 minutes. Allergies Coded Allergies: No Known Allergies (Unverified , 01/23/17) Vital Signs Vital Signs Date Time Temp Pulse Resp B/P (MAP) Pulse Ox O2 Delivery O2 Flow Rate FiO2 01/28/17 06:00 98.4 73 16 127/60 (82) 95 Room Air Laboratory Data CBC/BMP Laboratory Tests 01/28/17 06:54 Calcium Level 8.4 L Labs 24H Laboratory Tests 2 01/28/17 06:54: Prothrombin Time 23.4H, Prothromb Time International Ratio 2.07, Anion Gap 8, Glomerular Filtration Rate > 60.0, Blood Urea Nitrogen 11, Creatinine 0.60, Sodium Level 138, Potassium Level 4.6, Chloride Level 103, Carbon Dioxide Level 27, Calcium Level 8.4L Current Medications Current Medications Current Medications Acetaminophen (Tylenol Tab) 650 mg Q6HP PRN PO PAIN OR FEVER Last administered on 01/27/17 22:21; Start 01/25/17 at 15:45; Stop 02/24/17 at 15:44 Fluticasone Propionate (Flonase 0.05% Nasal [place]) 2 spray DAILY NA Last administered on 01/28/17 09:05; Start 01/26/17 at 09:00; Stop 02/25/17 at 08:59 Magnesium Hydroxide (Milk Of Magnesia) 30 ml DAILYPRN PRN PO CONSTIPATION; Start 01/25/17 at 15:45; Stop 02/24/17 at 15:44 Multivitamins (Theragram-M) 1 tab DAILY PO Last administered on 01/28/17 09:05 ; Start 01/26/17 at 09:00; Stop 02/25/17 at 08:59 Ondansetron HCl (Zofran) 4 mg Q6HP PRN PO NAUSEA Last administered on 15:47; Start 01/25/17 at 15:45; Stop 01/28/17 at 06:00; Status DC Oxycodone HCl (Roxicodone, Oxyir) 5 mg Q6HP PRN PO PAIN (PAIN SCALE 4 TO 7) Last administered on 01/28/17 01:34; Start 01/25/17 at 16:30; Stop 01/30/17 at 12:00 Oxycodone HCl (Roxicodone, Oxyir) 10 mg Q6HP PRN PO SEVERE PAIN (PS 8-10); Start 01/25/17 at 16:30; Stop 01/30/17 at 12:00 Pantoprazole Sodium (Protonix) 40 mg DAILY PO Last administered on 01/28/17 09 :05; Start 01/26/17 at 09:00; Stop 02/25/17 at 08:59 Polyethylene Glycol (Miralax) 1 pkt DAILY PRN PO CONSTIPATION; Start 01/25/17 at 15:45; Stop 02/24/17 at 15:44 Senna (Senokot) 1 tab QHS PO Last administered on 01/27/17 20:43; Start at 21:00; Stop 02/24/17 at 20:59 Sodium Biphosphate/ Sodium Phosphate (Fleet Enema) 1 ea DAILYPRN PRN [place] CONSTIPATION; Start 01/25/17 at 15:45; Stop 02/24/17 at 15:44 Thyroid ([place] Thyroid) 30 mg DAILY@07 PO Last administered on 01/28/17 06:20 ; Start 01/26/17 at 07:00; Stop 02/25/17 at 06:59 Trazodone HCl (Desyrel) 50 mg QHS PO ; Start 01/28/17 at 21:00; Stop 02/06/17 at 23:55 Trazodone HCl (Desyrel) 50 mg QHSP PRN PO IF NOT ASLEEP BY 2300; Start at 12:00; Stop 02/27/17 at 11:59 Warfarin Sodium (Coumadin) 5 mg 1T@17 PO Last administered on 01/25/17 18:38; Start 01/25/17 at 17:00; Stop 01/25/17 at 17:25; Status DC DEBBY MORTENSEN MD Jan 28, 2017 12:39
[2017-01-28 14:14] VITALS: BP 134/68
[2017-01-28] MEDS ORDERED: WARFARIN SOD 2.5 MG TAB PO ONE (17:00)
[2017-01-28 20:30] VITALS: BP 142/80
[2017-01-28] MEDS: SENNA 8.6 MG TAB (SENOKOT) PO SCH (21:16)
[2017-01-28] MEDS: traZODone 50 MG TAB PO SCH (22:49)
[2017-01-29] MEDS: traZODone 50 MG TAB PO PRN (00:39)
[2017-01-29] MEDS: THYROID 30 MG TAB PO SCH (05:19)
[2017-01-29] MEDS: ACETAMINOPHEN TAB 650MG DOSE (2X325MG) PO PRN (05:20)
[2017-01-29 05:54] VITALS: BP 147/64
[2017-01-29 07:18] LABS: INR 2.32
[2017-01-29 07:27] LABS: MEAN CORPUSCULAR HEMOGLOBIN 30.4 pg (27.0-33.0); MEAN CORPUSCULAR HGB CONC 32.5 g/dl (32.0-36.5); MEAN CORPUSCULAR VOLUME 93.6 fl (80.0-96.0); RED CELL DISTRIBUTION WIDTH 12.8 % (11.5-14.5); WHITE BLOOD COUNT 6.9 K/mm3 (4.0-10.0)
[2017-01-29 07:31] LABS: ANION GAP 8 MEQ/L (8-16); BLOOD UREA NITROGEN 9 MG/DL (7-18); CALCIUM LEVEL 8.5 MG/DL (8.8-10.2); CARBON DIOXIDE LEVEL 29 MEQ/L (21-32); CHLORIDE LEVEL 101 MEQ/L (98-107); CREATININE FOR GFR 0.65 MG/DL (0.55-1.02); GLOMERULAR FILTRATION RATE > 60.0 (>32); GLUCOSE, FASTING 99 MG/DL (83-110); POTASSIUM SERUM 4.4 MEQ/L (3.5-5.1); SODIUM LEVEL 138 MEQ/L (136-145)
[2017-01-29] MEDS: PANTOPRAZOLE 40MG TAB (PROTONIX) PO SCH (09:01)
[2017-01-29] MEDS: MULTIVITAMINS/MINERALS THERAP 1 TAB PO SCH (09:01)
[2017-01-29] MEDS: FLUTICASONE PROP 0.05% NASAL SPRAY 16 GM (FLONASE) SCH (09:02)
--- NOTE | 2017-01-29 11:48 | IPNPDOC ---
Subjective Date Seen The patient was seen on 01/29/17. Subjective Chief Complaint/HPI The patient is a 86-year-old female admitted with a reason for visit of Right Femoral Neck Fx With Some Impaction. Events since last encounter Pt with no SOB/Abd pain/CP. In bed resting from OT. Pain controlled. Pulmonary: Denies: Dyspnea, Cough Cardiovascular: Denies: Chest Pain, Palpitations, Orthopnea, Paroxysmal Noc. Dyspnea, Lt Headedness Gastrointestinal: Denies: Nausea, Vomiting, Abdominal Pain, Diarrhea, Constipation Genitourinary: Denies: Dysuria, Frequency, Incontinence, Retention Objective Physical Examination General Exam: Positive: Alert Eye Exam: Positive: PERRLA ENT Exam: Positive: Atraumatic Neck Exam: Positive: Supple Chest Exam: Positive: Clear to auscultation, Normal air movement Heart Exam: Positive: Rate Normal, Regular Rhythm, Normal S1, Normal S2, Negative: Murmurs, Rubs Extremity Exam: Positive: Normal pulses, Negative: Clubbing, Cyanosis, Edema Skin Exam: Positive: Nl turgor and temperature Assessment /Plan Problems (1) Fracture of femoral neck, right, closed Status: Acute Problem Text: * Mgmt as per ARU * PT/OT/Pain control/Bowel care as per Dr Macias. * Coumadin as per Orthopedics. (2) Postoperative anemia Status: Acute Problem Text: * Hgb 9.0. * Monitor. (3) Hyponatremia Status: Resolved Problem Text: * Na WNL. * Monitor. (4) Hypothyroid Status: Chronic Problem Text: * Cont supplement. (5) GERD (gastroesophageal reflux disease) Status: Chronic Problem Text: * PPI (6) Allergic rhinitis Status: Chronic Problem Text: * flonase Plan/VTE VTE Prophylaxis Ordered?: Yes (Coumadin as per Ortho) VS, I&O, 24H, Fishbone Vital Signs/I&O Vital Signs Date Time Temp Pulse Resp B/P (MAP) Pulse Ox O2 Delivery O2 Flow Rate FiO2 01/29/17 05:54 98.7 80 18 147/64 (91) 96 Room Air I&O- Last 24 Hours up to 6 AM 01/29/17 06:00 Intake Total 660 ml Output Total 1850 ml Balance -1190 ml Laboratory Data 24H LABS Laboratory Tests 2 01/29/17 06:55: Prothrombin Time 25.5H, Prothromb Time International Ratio 2.32, Anion Gap 8, Glomerular Filtration Rate > 60.0, Blood Urea Nitrogen 9, Creatinine 0.65, Sodium Level 138, Potassium Level 4.4, Chloride Level 101, Carbon Dioxide Level 29, Calcium Level 8.5L CBC/BMP Laboratory Tests 01/29/17 06:55 Red Blood Count 2.95 L, Mean Corpuscular Volume 93.6, Mean Corpuscular Hemoglobin 30.4, Mean Corpuscular Hemoglobin Concent 32.5, Red Cell Distribution Width 12.8, Calcium Level 8.5 L Yessenia Nair Jan 29, 2017 11:48
[2017-01-29 14:00] VITALS: BP 136/62
--- NOTE | 2017-01-29 15:22 | IPNPDOC ---
[employer] Progress Note DATE OF SERVICE: DATE OF ADMISSION: Jan 25, 2017 at 16:25 INPATIENT REHABILITATION ADMISSION DAY: #5 SUBJECTIVE: Patient is a 86-year-old white female with right hip fracture status post open reduction internal fixation on 01/24/17. Patient reports the pain is been improving. Otherwise no problems reported and patient has had bowel movements since coming to the unit. Patient once to find out when she can travel and how long she will need to be on Coumadin. I have let Fletcher from orthopedics know about these and she will notified Dr. Savage and get information for the patient. ALLERGIES: See Below MEDICATIONS: Reviewed, see below. OBJECTIVE: VITAL SIGNS: Please see below. PHYSICAL EXAMINATION: GENERAL: Well-nourished well-developed elderly white female who is alert and well oriented and mild musculoskeletal distress around her right hip. HEENT: Normocephalic/atraumatic. CARDIOVASCULAR: Regular rate and rhythm with normal S1-S2. LUNGS: All sesay clear to auscultation. ABDOMEN: Benign with normal bowel sounds heard in all quadrants. NEUROLOGICAL: Patient alert and oriented 4. Speech is clear coherent and appropriate. Affect is pleasant cooperative patient is a little anxious. Memory is intact. Bilateral upper extremity and left lower extremity sensory motor intact with some guarding on the right lower extremity. SKIN: Surgical site healing well. LABORATORY DATA: Reviewed. Please see below. MICROBIOLOGY: Please see below. IMAGING: No new imaging. DVT prophylaxis ordered?: Patient continues on Coumadin with INR of 2.32 now therapeutic with target range at 2.0-3.0. Coumadin orders per orthopedics. ASSESSMENT AND PLAN: 1. Rehabilitation of right hip fracture status post ORIF: Patient overall appears to be much more comfortable when seen initially on Saturday. Patient progressing with PT/OT goals and anticipate reaching d/c goals by 02/01/17. Orthopedics to let us know duration of Coumadin and when patient will be ready to fly back to [place], [place]. 2. Postoperative anemia: Was H & H of 9.0 & 27.6% today, which remains relatively stable. 3. DVT prophylaxis: Patient now therapeutic on Coumadin and will continue with ANTHONY hose and discontinue sequential compression but focus on getting patient to ambulate more more and therapy. 4. Discharge planning: Patient is interested in when she can fly back home. I suspect orthopedics would like to keep her from risking the surgery until the bone is a little stickier and stronger. TIME SPENT: Chart Review, examination and documentation required greater than 15 minutes. Allergies Coded Allergies: No Known Allergies (Unverified , 01/23/17) Vital Signs Vital Signs Date Time Temp Pulse Resp B/P (MAP) Pulse Ox O2 Delivery O2 Flow Rate FiO2 01/29/17 14:00 98.3 80 18 136/62 (86) 97 Room Air Laboratory Data CBC/BMP Laboratory Tests 01/29/17 06:55 Red Blood Count 2.95 L, Mean Corpuscular Volume 93.6, Mean Corpuscular Hemoglobin 30.4, Mean Corpuscular Hemoglobin Concent 32.5, Red Cell Distribution Width 12.8, Calcium Level 8.5 L Labs 24H Laboratory Tests 2 01/29/17 06:55: Prothrombin Time 25.5H, Prothromb Time International Ratio 2.32, Anion Gap 8, Glomerular Filtration Rate > 60.0, Blood Urea Nitrogen 9, Creatinine 0.65, Sodium Level 138, Potassium Level 4.4, Chloride Level 101, Carbon Dioxide Level 29, Calcium Level 8.5L 01/29/17 13:55: Urine Appearance CLEAR, Urine Color YELLOW, Urine pH 7.0, Urine Specific [place] 1.005, Urine Protein NEGATIVE, Urine Glucose (UA) NEGATIVE, Urine Ketones NEGATIVE, Urine Urobilinogen 0.2, Urine Bilirubin NEGATIVE, Urine Leukocyte Esterase NEGATIVE, Urine Blood NEGATIVE, Urine Nitrite NEGATIVE, Urine WBC (Auto) 1, Urine RBC (Auto) 1, Urine Hyaline Casts (Auto) 0, Urine Bacteria (Auto) NEGATIVE, Urine Squamous Epithelial Cells 0, Urine Sperm (Auto) Current Medications Current Medications Current Medications Acetaminophen (Tylenol Tab) 325 mg Q3HP PRN PO PAIN OR FEVER; Start 01/29/17 at 15:45; Stop 02/24/17 at 15:44 Acetaminophen (Tylenol Tab) 650 mg Q6HP PRN PO PAIN OR FEVER Last administered on 01/29/17 05:20; Start 01/25/17 at 15:45; Stop 01/29/17 at 10:57; Status DC Fluticasone Propionate (Flonase 0.05% Nasal [place]) 2 spray DAILY NA Last administered on 01/29/17 09:02; Start 01/26/17 at 09:00; Stop 02/25/17 at 08:59 Magnesium Hydroxide (Milk Of Magnesia) 30 ml DAILYPRN PRN PO CONSTIPATION; Start 01/25/17 at 15:45; Stop 02/24/17 at 15:44 Multivitamins (Theragram-M) 1 tab DAILY PO Last administered on 01/29/17 09:01 ; Start 01/26/17 at 09:00; Stop 02/25/17 at 08:59 Ondansetron HCl (Zofran) 4 mg Q6HP PRN PO NAUSEA Last administered on 15:47; Start 01/25/17 at 15:45; Stop 01/28/17 at 06:00; Status DC Oxycodone HCl (Roxicodone, Oxyir) 5 mg Q6HP PRN PO PAIN (PAIN SCALE 4 TO 7) Last administered on 01/28/17 01:34; Start 01/25/17 at 16:30; Stop 02/05/17 at 12:00 Oxycodone HCl (Roxicodone, Oxyir) 10 mg Q6HP PRN PO SEVERE PAIN (PS 8-10); Start 01/25/17 at 16:30; Stop 02/05/17 at 12:00 Pantoprazole Sodium (Protonix) 40 mg DAILY PO Last administered on 01/29/17 09 :01; Start 01/26/17 at 09:00; Stop 02/25/17 at 08:59 Polyethylene Glycol (Miralax) 1 pkt DAILY PRN PO CONSTIPATION; Start 01/25/17 at 15:45; Stop 02/24/17 at 15:44 Senna (Senokot) 1 tab QHS PO Last administered on 01/28/17 21:16; Start at 21:00; Stop 02/24/17 at 20:59 Sodium Biphosphate/ Sodium Phosphate (Fleet Enema) 1 ea DAILYPRN PRN [place] CONSTIPATION; Start 01/25/17 at 15:45; Stop 02/24/17 at 15:44 Thyroid ([place] Thyroid) 30 mg DAILY@07 PO Last administered on 01/29/17 05:19 ; Start 01/26/17 at 07:00; Stop 02/25/17 at 06:59 Trazodone HCl (Desyrel) 50 mg QHS PO Last administered on 01/28/17 22:49; Start 01/28/17 at 21:00; Stop 02/06/17 at 23:55 Trazodone HCl (Desyrel) 50 mg QHSP PRN PO IF NOT ASLEEP BY 2300 Last administered on 01/29/17 00:39; Start 01/28/17 at 12:00; Stop 02/27/17 at 11:59 Warfarin Sodium (Coumadin) 5 mg 1T@17 PO Last administered on 01/25/17 18:38; Start 01/25/17 at 17:00; Stop 01/25/17 at 17:25; Status DC DEBBY MORTENSEN MD Jan 29, 2017 15:22
[2017-01-29 20:00] VITALS: BP 159/71
[2017-01-29] MEDS: SENNA 8.6 MG TAB (SENOKOT) PO SCH (20:55)
[2017-01-29] MEDS: traZODone 50 MG TAB PO SCH (21:55)
[2017-01-30 06:00] VITALS: BP 130/63
[2017-01-30] MEDS: THYROID 30 MG TAB PO SCH (06:07)
[2017-01-30] MEDS: ACETAMINOPHEN 325 MG TAB PO PRN ×2 (06:07→22:04)
[2017-01-30 06:56] LABS: INR 2.21
[2017-01-30 07:01] LABS: ANION GAP 7 MEQ/L (8-16); BLOOD UREA NITROGEN 13 MG/DL (7-18); CALCIUM LEVEL 8.8 MG/DL (8.8-10.2); CARBON DIOXIDE LEVEL 29 MEQ/L (21-32); CHLORIDE LEVEL 97 MEQ/L (98-107); CREATININE FOR GFR 0.66 MG/DL (0.55-1.02); GLOMERULAR FILTRATION RATE > 60.0 (>32); GLUCOSE, FASTING 123 MG/DL (83-110); POTASSIUM SERUM 4.1 MEQ/L (3.5-5.1); SODIUM LEVEL 133 MEQ/L (136-145)
[2017-01-30] MEDS: FLUTICASONE PROP 0.05% NASAL SPRAY 16 GM (FLONASE) SCH (08:58)
[2017-01-30] MEDS: MULTIVITAMINS/MINERALS THERAP 1 TAB PO SCH (09:00)
[2017-01-30] MEDS: PANTOPRAZOLE 40MG TAB (PROTONIX) PO SCH (09:00)
--- NOTE | 2017-01-30 09:20 | IPNPDOC ---
Volunteer Assistant Progress Note DATE OF SERVICE: 01/30/17 DATE OF ADMISSION: Jan 25, 2017 at 16:25 INPATIENT REHABILITATION ADMISSION DAY: #6 SUBJECTIVE: Patient is a 86-year-old white female with right hip fracture status post open reduction internal fixation on 01/24/17. Patient reports the pain is been improving. Otherwise no problems reported and patient has had bowel movements since coming to the unit. Patient desires to find out when she can travel and how long she will need to be on Coumadin. Ms. Fletcher was to ask Dr. Savage yesterday evening. ALLERGIES: See Below MEDICATIONS: Reviewed, see below. OBJECTIVE: VITAL SIGNS: Please see below. PHYSICAL EXAMINATION: GENERAL: Well-nourished well-developed elderly white female who is alert and well oriented and mild musculoskeletal distress around her right hip. HEENT: Normocephalic/atraumatic. CARDIOVASCULAR: Regular rate and rhythm with normal S1-S2. LUNGS: All sesay clear to auscultation. ABDOMEN: Benign with normal bowel sounds heard in all quadrants. NEUROLOGICAL: Patient alert and oriented 4. Speech is clear coherent and appropriate. Affect is pleasant cooperative patient is a little anxious. Memory is intact. Bilateral upper extremity and left lower extremity sensory motor intact with some guarding on the right lower extremity. SKIN: Surgical site healing well. LABORATORY DATA: Reviewed. Please see below. MICROBIOLOGY: Please see below. IMAGING: No new imaging. DVT prophylaxis ordered?: Patient continues on Coumadin with INR of 2.21 now with therapeutic with target range at 2.0-3.0. Coumadin held per orthopedics. ASSESSMENT AND PLAN: 1. Rehabilitation of right hip fracture status post ORIF: Patient progressing with PT/OT goals and anticipate reaching d/c goals by 02/01/17. Orthopedics to let us know duration of Coumadin and when patient will be ready to fly back to [place], [place]. 2. DVT prophylaxis: Patient now therapeutic on Coumadin and will continue with focus on getting patient to ambulate more more and therapy. 4. Discharge planning: Patient is interested in when she can fly back home. I suspect orthopedics would like to keep her from risking the surgery until the bone is a little stickier and stronger. Plan discharge for Thursday 02/01 TIME SPENT: Chart Review, examination and documentation required greater than 25 minutes. Allergies Coded Allergies: No Known Allergies (Unverified , 01/23/17) Vital Signs Vital Signs Date Time Temp Pulse Resp B/P (MAP) Pulse Ox O2 Delivery O2 Flow Rate FiO2 01/30/17 06:00 99.0 81 18 130/63 (85) 94 Room Air Laboratory Data CBC/BMP Laboratory Tests 01/30/17 06:26 Calcium Level 8.8 Labs 24H Laboratory Tests 2 01/29/17 13:55: Urine Appearance CLEAR, Urine Color YELLOW, Urine pH 7.0, Urine Specific [place] 1.005, Urine Protein NEGATIVE, Urine Glucose (UA) NEGATIVE, Urine Ketones NEGATIVE, Urine Urobilinogen 0.2, Urine Bilirubin NEGATIVE, Urine Leukocyte Esterase NEGATIVE, Urine Blood NEGATIVE, Urine Nitrite NEGATIVE, Urine WBC (Auto) 1, Urine RBC (Auto) 1, Urine Hyaline Casts (Auto) 0, Urine Bacteria (Auto) NEGATIVE, Urine Squamous Epithelial Cells 0, Urine Sperm (Auto) 01/30/17 06:26: Prothrombin Time 24.6H, Prothromb Time International Ratio 2.21, Anion Gap 7L, Glomerular Filtration Rate > 60.0, Blood Urea Nitrogen 13, Creatinine 0.66, Sodium Level 133L, Potassium Level 4.1, Chloride Level 97L, Carbon Dioxide Level 29, Calcium Level 8.8 Current Medications Current Medications Current Medications Acetaminophen (Tylenol Tab) 325 mg Q3HP PRN PO PAIN OR FEVER Last administered on 01/30/17 06:07; Start 01/29/17 at 15:45; Stop 02/24/17 at 15:44 Acetaminophen (Tylenol Tab) 650 mg Q6HP PRN PO PAIN OR FEVER Last administered on 01/29/17 05:20; Start 01/25/17 at 15:45; Stop 01/29/17 at 10:57; Status DC Fluticasone Propionate (Flonase 0.05% Nasal [place]) 2 spray DAILY NA Last administered on 01/30/17 08:58; Start 01/26/17 at 09:00; Stop 02/25/17 at 08:59 Magnesium Hydroxide (Milk Of Magnesia) 30 ml DAILYPRN PRN PO CONSTIPATION; Start 01/25/17 at 15:45; Stop 02/24/17 at 15:44 Multivitamins (Theragram-M) 1 tab DAILY PO Last administered on 01/30/17 09:00 ; Start 01/26/17 at 09:00; Stop 02/25/17 at 08:59 Ondansetron HCl (Zofran) 4 mg Q6HP PRN PO NAUSEA Last administered on 15:47; Start 01/25/17 at 15:45; Stop 01/28/17 at 06:00; Status DC Oxycodone HCl (Roxicodone, Oxyir) 5 mg Q6HP PRN PO PAIN (PAIN SCALE 4 TO 7) Last administered on 01/28/17 01:34; Start 01/25/17 at 16:30; Stop 02/05/17 at 12:00 Oxycodone HCl (Roxicodone, Oxyir) 10 mg Q6HP PRN PO SEVERE PAIN (PS 8-10); Start 01/25/17 at 16:30; Stop 02/05/17 at 12:00 Pantoprazole Sodium (Protonix) 40 mg DAILY PO Last administered on 01/30/17 09 :00; Start 01/26/17 at 09:00; Stop 02/25/17 at 08:59 Polyethylene Glycol (Miralax) 1 pkt DAILY PRN PO CONSTIPATION; Start 01/25/17 at 15:45; Stop 02/24/17 at 15:44 Senna (Senokot) 1 tab QHS PO Last administered on 01/28/17 21:16; Start at 21:00; Stop 02/24/17 at 20:59 Sodium Biphosphate/ Sodium Phosphate (Fleet Enema) 1 ea DAILYPRN PRN [place] CONSTIPATION; Start 01/25/17 at 15:45; Stop 02/24/17 at 15:44 Thyroid ([place] Thyroid) 30 mg DAILY@07 PO Last administered on 01/30/17 06:07 ; Start 01/26/17 at 07:00; Stop 02/25/17 at 06:59 Trazodone HCl (Desyrel) 50 mg QHS PO Last administered on 01/29/17 21:55; Start 01/28/17 at 21:00; Stop 02/06/17 at 23:55 Trazodone HCl (Desyrel) 50 mg QHSP PRN PO IF NOT ASLEEP BY 2300 Last administered on 01/29/17 00:39; Start 01/28/17 at 12:00; Stop 02/27/17 at 11:59 Warfarin Sodium (Coumadin) 5 mg 1T@17 PO Last administered on 01/25/17t 18:38; Start 01/25/17 at 17:00; Stop 01/25/17 at 17:25; Status DC DEBBY MORTENSEN MD Jan 30, 2017 09:20
[2017-01-30 14:00] VITALS: BP 119/56
[2017-01-30 20:00] VITALS: BP 137/64
[2017-01-30] MEDS: traZODone 50 MG TAB PO SCH (22:04)
[2017-01-30] MEDS: SENNA 8.6 MG TAB (SENOKOT) PO SCH (22:04)
[2017-01-30] MEDS: traZODone 50 MG TAB PO PRN (23:56)
[2017-01-31] MEDS: ACETAMINOPHEN 325 MG TAB PO PRN (03:10)
[2017-01-31 06:00] VITALS: BP 136/63
[2017-01-31] MEDS: THYROID 30 MG TAB PO SCH (06:16)
[2017-01-31 08:10] LABS: ANION GAP 6 MEQ/L (8-16); BLOOD UREA NITROGEN 17 MG/DL (7-18); CALCIUM LEVEL 8.7 MG/DL (8.8-10.2); CARBON DIOXIDE LEVEL 28 MEQ/L (21-32); CHLORIDE LEVEL 98 MEQ/L (98-107); CREATININE FOR GFR 0.67 MG/DL (0.55-1.02); GLOMERULAR FILTRATION RATE > 60.0 (>32); GLUCOSE, FASTING 103 MG/DL (83-110); POTASSIUM SERUM 4.1 MEQ/L (3.5-5.1); SODIUM LEVEL 132 MEQ/L (136-145)
[2017-01-31 08:12] LABS: INR 1.79
[2017-01-31] MEDS: PANTOPRAZOLE 40MG TAB (PROTONIX) PO SCH (08:44)
[2017-01-31] MEDS: MULTIVITAMINS/MINERALS THERAP 1 TAB PO SCH (08:44)
[2017-01-31] MEDS: FLUTICASONE PROP 0.05% NASAL SPRAY 16 GM (FLONASE) SCH (08:44)
[2017-01-31] MEDS: ASPIRIN ENTERIC 325 MG TAB PO SCH (11:41)
[2017-01-31 15:01] VITALS: BP 152/69
[2017-01-31] MEDS ORDERED: SODIUM CHLORIDE 1 GM TAB PO ONE (15:05)
--- NOTE | 2017-01-31 15:05 | IPNPDOC ---
Supervisor Records Change Progress Note DATE OF SERVICE: 01/31/17 DATE OF ADMISSION: Jan 25, 2017 at 16:25 INPATIENT REHABILITATION ADMISSION DAY: #7 SUBJECTIVE: Patient is a 86-year-old white female with right hip fracture status post open reduction internal fixation on 01/24/17. Patient reports the pain is been improving. Otherwise no problems reported. Patient see Dr. Savage's PA on February 08 and is being transitioned to aspirin and to continue ANTHONY hose. ALLERGIES: See Below MEDICATIONS: Reviewed, see below. OBJECTIVE: VITAL SIGNS: Please see below. PHYSICAL EXAMINATION: GENERAL: Well-nourished well-developed elderly white female who is alert and well oriented and very mild musculoskeletal distress around her right hip. HEENT: Normocephalic/atraumatic. CARDIOVASCULAR: Regular rate and rhythm with normal S1-S2. LUNGS: All sesay clear to auscultation. ABDOMEN: Benign with normal bowel sounds heard in all quadrants. NEUROLOGICAL: Patient alert and oriented 4. Speech is clear coherent and appropriate. Affect is pleasant cooperative patient is a little anxious looking forward to discharge tomorrow and return to home in [facility] after seeing Orthopedics. Memory is intact. Bilateral upper extremity and left lower extremity sensory motor intact with some guarding on the right lower extremity. SKIN: Surgical site healing well. LABORATORY DATA: Reviewed. Please see below. MICROBIOLOGY: Please see below. IMAGING: No new imaging. DVT prophylaxis ordered?: Patient continues on Coumadin with INR of 1.79 ASSESSMENT AND PLAN: 1. Rehabilitation of right hip fracture status post ORIF: Patient discussed in team rounds today. Patient progressing with PT/OT goals and has reached her d/c goals today. Orthopedics has let us know when patient will be seen and then will be ready to fly back to [place], [place] on ASA prophylaxis. 2. DVT prophylaxis: Patient now therapeutic on Coumadin and will be transitioned off to Ecotrin 325 mg Daily. 3. Hyponatremia: Patient not willing to do fluid restricitions so I will start Salt Tablets. Na+ 132 today. 4. Discharge planning: Patient is interested in when she can fly back home. I suspect orthopedics would like to keep her from risking the surgery until the bone is a little stickier and stronger. Plan discharge for Thursday 02/01 Allergies Coded Allergies: No Known Allergies (Unverified , 01/23/17) Vital Signs Vital Signs Date Time Temp Pulse Resp B/P (MAP) Pulse Ox O2 Delivery O2 Flow Rate FiO2 01/31/17 06:00 98.6 74 18 136/63 (87) 96 Room Air Laboratory Data CBC/BMP Laboratory Tests 01/31/17 07:35 Calcium Level 8.7 L Labs 24H Laboratory Tests 2 01/31/17 07:35: Prothrombin Time 20.9H, Prothromb Time International Ratio 1.79, Anion Gap 6L, Glomerular Filtration Rate > 60.0, Blood Urea Nitrogen 17, Creatinine 0.67, Sodium Level 132L, Potassium Level 4.1, Chloride Level 98, Carbon Dioxide Level 28, Calcium Level 8.7L Current Medications Current Medications Current Medications Acetaminophen (Tylenol Tab) 325 mg Q3HP PRN PO PAIN OR FEVER Last administered on 01/31/17 03:10; Start 01/29/17 at 15:45; Stop 02/24/17 at 15:44 Acetaminophen (Tylenol Tab) 650 mg Q6HP PRN PO PAIN OR FEVER Last administered on 01/29/17 05:20; Start 01/25/17 at 15:45; Stop 01/29/17 at 10:57; Status DC Aspirin (Ecotrin) 325 mg DAILY PO Last administered on 01/31/17 11:41; Start 01/31/17 at 09:00; Stop 03/02/17 at 08:59 Fluticasone Propionate (Flonase 0.05% Nasal [place]) 2 spray DAILY NA Last administered on 01/31/17 08:44; Start 01/26/17 at 09:00; Stop 02/25/17 at 08:59 Magnesium Hydroxide (Milk Of Magnesia) 30 ml DAILYPRN PRN PO CONSTIPATION; Start 01/25/17 at 15:45; Stop 02/24/17 at 15:44 Multivitamins (Theragram-M) 1 tab DAILY PO Last administered on 01/31/17 08:44 ; Start 01/26/17 at 09:00; Stop 02/25/17 at 08:59 Ondansetron HCl (Zofran) 4 mg Q6HP PRN PO NAUSEA Last administered on 15:47; Start 01/25/17 at 15:45; Stop 01/28/17 at 06:00; Status DC Oxycodone HCl (Roxicodone, Oxyir) 5 mg Q6HP PRN PO PAIN (PAIN SCALE 4 TO 7) Last administered on 01/28/17 01:34; Start 01/25/17 at 16:30; Stop 02/05/17 at 12:00 Oxycodone HCl (Roxicodone, Oxyir) 10 mg Q6HP PRN PO SEVERE PAIN (PS 8-10); Start 01/25/17 at 16:30; Stop 02/05/17 at 12:00 Pantoprazole Sodium (Protonix) 40 mg DAILY PO Last administered on 01/31/17 08 :44; Start 01/26/17 at 09:00; Stop 02/25/17 at 08:59 Polyethylene Glycol (Miralax) 1 pkt DAILY PRN PO CONSTIPATION; Start 01/25/17 at 15:45; Stop 02/24/17 at 15:44 Senna (Senokot) 1 tab QHS PO Last administered on 01/30/17 22:04; Start at 21:00; Stop 02/24/17 at 20:59 Sodium Biphosphate/ Sodium Phosphate (Fleet Enema) 1 ea DAILYPRN PRN [place] CONSTIPATION; Start 01/25/17 at 15:45; Stop 02/24/17 at 15:44 Thyroid ([place] Thyroid) 30 mg DAILY@07 PO Last administered on 01/31/17 06:16 ; Start 01/26/17 at 07:00; Stop 02/25/17 at 06:59 Trazodone HCl (Desyrel) 50 mg QHS PO Last administered on 01/30/17 22:04; Start 01/28/17 at 21:00; Stop 02/06/17 at 23:55 Trazodone HCl (Desyrel) 50 mg QHSP PRN PO IF NOT ASLEEP BY 2300 Last administered on 01/30/17 23:56; Start 01/28/17 at 12:00; Stop 02/27/17 at 11:59 Warfarin Sodium (Coumadin) 5 mg 1T@17 PO Last administered on 01/25/17 18:38; Start 01/25/17 at 17:00; Stop 01/25/17 at 17:25; Status DC DEBBY MORTENSEN MD Jan 31, 2017 15:05
[2017-01-31] MEDS ORDERED: WARFARIN SOD 2.5 MG TAB PO ONE (17:00)
[2017-01-31 20:00] VITALS: BP 146/66
[2017-01-31] MEDS: SENNA 8.6 MG TAB (SENOKOT) PO SCH (20:43)
[2017-01-31] MEDS: traZODone 50 MG TAB PO SCH (20:44)
[2017-01-31] MEDS: SODIUM CHLORIDE 1 GM TAB PO SCH (20:44)
[2017-02-01] MEDS: traZODone 50 MG TAB PO PRN (00:09)
[2017-02-01 06:00] VITALS: BP 108/64
[2017-02-01] MEDS: THYROID 30 MG TAB PO SCH (06:47)
[2017-02-01 07:22] LABS: INR 1.79
[2017-02-01 07:25] LABS: ANION GAP 4 MEQ/L (8-16); BLOOD UREA NITROGEN 17 MG/DL (7-18); CALCIUM LEVEL 8.8 MG/DL (8.8-10.2); CARBON DIOXIDE LEVEL 31 MEQ/L (21-32); CHLORIDE LEVEL 104 MEQ/L (98-107); CREATININE FOR GFR 0.77 MG/DL (0.55-1.02); GLOMERULAR FILTRATION RATE > 60.0 (>32); GLUCOSE, FASTING 87 MG/DL (83-110); SODIUM LEVEL 139 MEQ/L (136-145)
[2017-02-01] MEDS ORDERED: ASPI32ECTA PO (08:17)
[2017-02-01] MEDS: FLUTICASONE PROP 0.05% NASAL SPRAY 16 GM (FLONASE) SCH (09:39)
[2017-02-01] MEDS: PANTOPRAZOLE 40MG TAB (PROTONIX) PO SCH (09:39)
[2017-02-01] MEDS: MULTIVITAMINS/MINERALS THERAP 1 TAB PO SCH (09:39)
[2017-02-01] MEDS: ASPIRIN ENTERIC 325 MG TAB PO SCH (09:40)
[2017-02-01] MEDS: SODIUM CHLORIDE 1 GM TAB PO SCH (09:40)
--- NOTE | 2017-02-02 12:32 | PMRDS ---
DATE OF ADMISSION: 01/25/2017 DATE OF DISCHARGE: 02/01/2017 DISCHARGE DIAGNOSES: Rehabilitation of right hip fracture with open reduction internal fixation of 01/24/2017 along with hyponatremia, moderate anemia secondary to hip fracture and ORIF, anxiety, hypothyroidism. HISTORY: Patient is an 86-year-old white female from [place], [place] who was vacationing and visiting family and friends in the area when on 01/24/2017, her feet became tangled in a rug and she fell onto her right side sustaining a right hip fracture. She was brought to [facility] and evaluated by Dr. Savage who did a open reduction internal fixation on 01/24/2017. Patient who had some anemia and pain problems following the surgery, was felt to be stable and ready for starting acute intensive rehabilitation on 01/25/2017 and was admitted to the acute rehabilitation unit at [facility] on 01/25/2017. Rehabilitation of right hip fracture with open reduction internal fixation of 01/24/2017 along with PROCEDURES PERFORMED ON THIS UNIT: None. DIAGNOSTIC AND LABORATORY DATA: Patient with moderate anemia showing hemoglobin and hematocrit of 9.2 and 27.7% on admission and then recheck showing 9.0 and 27.6 being relatively stable with no problems with tachycardia, hypotension noted during the course of her admission. Patient also with hyponatremia on admission , sodium of 126 and chloride of 92, was fluid restricted and showed progress. After fluid restriction was lifted, patient started to slide again out of the normal range but was given salt replacement last night and today sodium was 139, potassium 4.0, bicarbonate 104 with normal renal function. Patient has been on Coumadin and today's INR is 1.79. Due to patient travel and desire to be off Coumadin, she will be switched to enteric coated aspirin 325 mg daily but should have some additional correction from her current level of anticoagulation. HOSPITAL COURSE: Patient admitted on 01/25/2017 started evaluation with physical and occupational therapy, rehabilitation nursing and psychiatry and showed good ability to participate in and has benefited from therapies, learning how to become modified independent appreciably in mobility of activities of daily living for long distances, few steps, using a rolling walker while being egg-shell/ touch down weight bearing on her right lower extremity. She has met her discharge goals and is being discharged to home today. DISCHARGE MEDICATIONS: - enteric coated aspirin 325 mg a day - benzonatate 200 mg every 8 hours for cough - Flonase nasal spray one spray each nostril daily - guaifenesin/codeine cough syrup twice daily as needed cough - [place] thyroid 30 mg daily DISCHARGE PLAN: Patient is to have high salt intake to offset the hyponatremia as she elects not to do fluid restrictions to 1800 mL a day. Patient to followup with [facility] on 02/08/2017. Patient is to get a [facility] 1 [facility]. If electrolytes are off balance, patient can be seen at urgent care pending her return to home. She reports she is making flight arrangements to return to [place] on 02/11/2017. Time spent on discharge is greater than 35 minutes. QUANG
== END 2017-02-01 11:20 | disposition home health service (06) | DRG 560 ==
LOC: M PM&R 16:25
PROVIDERS: ADMIT Physical Medicine & Rehabilitation; ATTEND Physical Medicine & Rehabilitation
DX: Z47.89 Encounter for other orthopedic aftercare (principal); E87.0 Hyperosmolality and hypernatremia; S72.041D Displaced fracture of base of neck of right femur, subsequent encounter for closed fracture with routine healing; D64.9 Anemia, unspecified; F41.9 Anxiety disorder, unspecified; E03.9 Hypothyroidism, unspecified; Z79.899 Other long term (current) drug therapy; G47.00 Insomnia, unspecified; R50.9 Fever, unspecified; K21.9 Gastro-esophageal reflux disease without esophagitis; E88.09 Other disorders of plasma-protein metabolism, not elsewhere classified; J30.9 Allergic rhinitis, unspecified